=== PATIENT | male | born 1940 | race Hispanic/Latino ===

== ENCOUNTER 2024-07-23 08:43 | Inpatient (IN) | payer OTHER ==
[2024-07-23] VITALS (7 sets, daily range): BP systolic 112–131; BP diastolic 57–81; PULSE 57–71; RESP 16–18; TEMP 97.5–98.5; O2SAT 97–100
[~2024-07-23] VITALS: Ht 165.1 cm; Wt 72.6 kg
[2024-07-23] MEDS ORDERED: SODIUM CHLORIDE FLUSH 10 ML SYR IV PRN (09:15)
[2024-07-23 09:49] LABS: BASOPHILS % 0.3 % (0.0-1.0); EOSINOPHILS # (AUTO) 0.2 (0.0-0.4); EOSINOPHILS % 2.8 % (0.0-6.0); HEMATOCRIT 44.6 % (38.2-49.6); HEMOGLOBIN 14.4 g/dL (14.0-18.0); LYMPHOCYTES % 28.8 % (18.0-39.1); MEAN CORPUSCULAR HEMOGLOBIN 30.3 pg (28-32); MEAN CORPUSCULAR HGB CONC 32.3 g/dL (31-35); MEAN CORPUSCULAR VOLUME 93.9 fL (81-99); MONOCYTES # (AUTO) 0.7 (0.2-0.8); MONOCYTES % 9.6 % (4.4-11.3); NEUTROPHILS # (AUTO) 3.9 (2.1-6.9); NEUTROPHILS % 58.2 % (38.7-80.0); PLATELET COUNT 146 x10e3/uL (140-360); RED BLOOD COUNT 4.75 x10e6/uL (4.3-5.7); RED CELL DISTRIBUTION WIDTH 13.9 % (11.7-14.4); WHITE BLOOD COUNT 6.76 x10e3/uL (4.8-10.8)
[2024-07-23] MEDS: ASPIRIN 81 MG CHEW TAB PO ONE ×2 (10:02→13:27)
[2024-07-23 10:18] LABS: ALBUMIN/GLOBULIN RATIO 1.1 (0.8-2.0); ANION GAP 16.7 mmol/L (8-16); BILIRUBIN,TOTAL 1.1 mg/dL (0.2-1.2); CALCIUM 9.1 mg/dL (8.4-10.2); CREATININE, SERUM 0.79 mg/dL (0.72-1.25); POTASSIUM 3.7 mmol/L (3.5-5.1); TOTAL PROTEIN 7.5 g/dL (6.5-8.1)
[2024-07-23 10:23] LABS: TROPONIN I 0.031 ng/mL (0-0.300)
[2024-07-23] MEDS ORDERED: SODIUM CHLORIDE FLUSH 10 ML SYR INJ PRN (11:00)
[2024-07-23] MEDS ORDERED: ONDANSETRON HCL INJ 2MG/ML 2ML 2 MG/ML VIAL IV PRN (11:00)
[2024-07-23] MEDS ORDERED: PROPOFOL IV EMULSION 10 MG/ML 20 ML VIAL ONE (12:50)
[2024-07-23] MEDS ORDERED: LIDOCAINE HCL 2% LOCAL INJ 5 ML SDV VIAL INJ ONE (12:50)
[2024-07-23] MEDS: FUROSEMIDE INJ 10 MG/ML 4 ML VIAL IV SCH (15:30)
[2024-07-23 16:31] LABS: TROPONIN I 0.032 ng/mL (0-0.300)
[2024-07-23] MEDS ORDERED: LEVOTHYROXINE25 MCG PO (16:46)
[2024-07-23] MEDS ORDERED: ISOSORBIDE MONO30 MG PO (16:46)
[2024-07-23] MEDS ORDERED: METFORMIN HCL500 MG PO (16:46)
[2024-07-23] MEDS ORDERED: LISINOPRIL20 MG PO (16:46)
[2024-07-23] MEDS ORDERED: ATORVASTATIN CA20 MG PO (16:46)
[2024-07-23] MEDS ORDERED: CLOPIDOGREL75 MG PO (16:46)
[2024-07-23] MEDS ORDERED: VITAMIN PO (16:46)
[2024-07-23] MEDS ORDERED: METOPROLOL SUCC25 MG PO (16:46)
[2024-07-23] MEDS ORDERED: RANOLAZINE ER1000 MG PO (16:46)
[2024-07-24] VITALS (8 sets, daily range): BP systolic 110–128; BP diastolic 68–81; PULSE 65–79; RESP 16–20; TEMP 97.7–98.6; O2SAT 98–100
[2024-07-24 05:40] LABS: BASOPHILS % 0.6 % (0.0-1.0); EOSINOPHILS # (AUTO) 0.3 (0.0-0.4); EOSINOPHILS % 4.3 % (0.0-6.0); HEMATOCRIT 43.6 % (38.2-49.6); HEMOGLOBIN 13.9 g/dL (14.0-18.0); LYMPHOCYTES # (AUTO) 1.6 (1.0-3.2); LYMPHOCYTES % 24.8 % (18.0-39.1); MEAN CORPUSCULAR HEMOGLOBIN 30.2 pg (28-32); MEAN CORPUSCULAR HGB CONC 31.9 g/dL (31-35); MEAN CORPUSCULAR VOLUME 94.8 fL (81-99); MONOCYTES # (AUTO) 0.8 (0.2-0.8); MONOCYTES % 12.8 % (4.4-11.3); NEUTROPHILS # (AUTO) 3.6 (2.1-6.9); NEUTROPHILS % 57.2 % (38.7-80.0); PLATELET COUNT 138 x10e3/uL (140-360); RED CELL DISTRIBUTION WIDTH 13.8 % (11.7-14.4); WHITE BLOOD COUNT 6.24 x10e3/uL (4.8-10.8)
[2024-07-24 07:19] LABS: TROPONIN I 0.029 ng/mL (0-0.300)
[2024-07-24 08:03] LABS: ALBUMIN 3.6 g/dL (3.5-5.0); ALBUMIN/GLOBULIN RATIO 1.1 (0.8-2.0); BILIRUBIN,TOTAL 0.9 mg/dL (0.2-1.2); CREATININE, SERUM 0.74 mg/dL (0.72-1.25); TOTAL PROTEIN 6.8 g/dL (6.5-8.1)
[2024-07-24] MEDS: ISOSORBIDE MONONITRATE 30 MG TAB CR PO SCH (10:31)
[2024-07-24] MEDS: POTASSIUM CHLORIDE 10MEQ EA PO SCH (10:31)
[2024-07-24 14:26] LABS: ANION GAP 15.9 mmol/L (8-16)
[2024-07-24 15:59] LABS: POTASSIUM 3.9 mmol/L (3.0-5.1)
[2024-07-24] MEDS: ENOXAPARIN SOD INJ 40 MG/0.4 ML SYR SC SCH (16:46)
[2024-07-24] MEDS: LISINOPRIL 2.5 MG TAB PO SCH (16:46)
[2024-07-24] MEDS: METOPROLOL SUCCINATE 25 MG TAB XL PO SCH (21:00)
[2024-07-24] MEDS: ATORVASTATIN 40 MG TAB PO SCH (22:43)
[2024-07-24] MEDS: CLOPIDOGREL BISULFATE 75 MG TAB PO SCH (22:43)
[2024-07-25] VITALS (8 sets, daily range): BP systolic 109–120; BP diastolic 59–73; PULSE 62–81; RESP 16–19; TEMP 97.3–98; O2SAT 98–100
[2024-07-25 05:40] LABS: BASOPHILS % 0.6 % (0.0-1.0); EOSINOPHILS # (AUTO) 0.3 (0.0-0.4); EOSINOPHILS % 3.7 % (0.0-6.0); HEMATOCRIT 43.5 % (38.2-49.6); HEMOGLOBIN 13.7 g/dL (14.0-18.0); LYMPHOCYTES % 28.8 % (18.0-39.1); MEAN CORPUSCULAR HGB CONC 31.5 g/dL (31-35); MEAN CORPUSCULAR VOLUME 95.4 fL (81-99); MONOCYTES # (AUTO) 0.8 (0.2-0.8); MONOCYTES % 11.9 % (4.4-11.3); NEUTROPHILS # (AUTO) 3.7 (2.1-6.9); NEUTROPHILS % 54.6 % (38.7-80.0); PLATELET COUNT 141 x10e3/uL (140-360); RED BLOOD COUNT 4.56 x10e6/uL (4.3-5.7); RED CELL DISTRIBUTION WIDTH 13.8 % (11.7-14.4); WHITE BLOOD COUNT 6.83 x10e3/uL (4.8-10.8)
[2024-07-25] MEDS: LEVOTHYROXINE SODIUM 25 MCG TABLET PO SCH (05:58)
[2024-07-25 06:02] LABS: CREATININE, SERUM 0.82 mg/dL (0.72-1.25)
[2024-07-25 06:33] LABS: TROPONIN I 0.101 ng/mL (0-0.300)
[2024-07-25] MEDS: RANOLAZINE 500 MG TABSR PO SCH (09:01)
[2024-07-25] MEDS: ASPIRIN 81 MG ENTERIC COATED PO SCH (09:02)
[2024-07-25] MEDS: POTASSIUM CHLORIDE 10MEQ EA PO ONE (11:08)
[2024-07-25] MEDS ORDERED: ONDANSETRON HCL 4 MG ORAL DISINTEGRATING TAB PO PRN (15:00)
[2024-07-25] MEDS: POTASSIUM CHLORIDE 10MEQ EA PO SCH (17:12)
[2024-07-26] VITALS (8 sets, daily range): BP systolic 108–122; BP diastolic 52–74; PULSE 55–74; RESP 16–18; TEMP 97.5–98.1; O2SAT 95–100
[2024-07-26 07:06] LABS: CALCIUM 9.3 mg/dL (8.4-10.2); CREATININE, SERUM 0.98 mg/dL (0.72-1.25)
[2024-07-26 07:21] LABS: ANION GAP 15.7 mmol/L (8-16); POTASSIUM 3.7 mmol/L (3.5-5.1)
[2024-07-27] VITALS (8 sets, daily range): BP systolic 101–127; BP diastolic 49–88; PULSE 49–69; RESP 16–18; TEMP 97.5–98.2; O2SAT 94–100
[2024-07-27] MEDS ORDERED: IOPAMIDOL 370 MG/ML 100 ML INFUS..BTL INJ ONE ×2 (10:25→11:01)
[2024-07-28] VITALS (7 sets, daily range): BP systolic 101–115; BP diastolic 61–73; PULSE 52–71; RESP 16–18; TEMP 97.5–98.2; O2SAT 100
[2024-07-28 07:14] LABS: BASOPHILS # (AUTO) 0.1 (0.0-0.1); BASOPHILS % 0.8 % (0.0-1.0); EOSINOPHILS # (AUTO) 0.4 (0.0-0.4); EOSINOPHILS % 4.7 % (0.0-6.0); HEMATOCRIT 45.2 % (38.2-49.6); HEMOGLOBIN 14.6 g/dL (14.0-18.0); LYMPHOCYTES # (AUTO) 2.6 (1.0-3.2); MEAN CORPUSCULAR HGB CONC 32.3 g/dL (31-35); MONOCYTES # (AUTO) 0.7 (0.2-0.8); MONOCYTES % 9.3 % (4.4-11.3); NEUTROPHILS # (AUTO) 3.7 (2.1-6.9); NEUTROPHILS % 49.9 % (38.7-80.0); PLATELET COUNT 179 x10e3/uL (140-360); RED BLOOD COUNT 4.86 x10e6/uL (4.3-5.7); RED CELL DISTRIBUTION WIDTH 13.7 % (11.7-14.4); WHITE BLOOD COUNT 7.43 x10e3/uL (4.8-10.8)
[2024-07-28 07:29] LABS: ANION GAP 15.4 mmol/L (8-16); CALCIUM 9.8 mg/dL (8.4-10.2); CREATININE, SERUM 1.23 mg/dL (0.72-1.25)
[2024-07-28 07:32] LABS: POTASSIUM 5.4 mmol/L (3.5-5.1)
[2024-07-28 07:44] LABS: INR 1.01; PROTHROMBIN TIME 13.8 seconds (11.9-14.5)
[2024-07-29] VITALS (9 sets, daily range): BP systolic 105–129; BP diastolic 60–74; PULSE 57–66; RESP 16–20; TEMP 97.5–98; O2SAT 96–100
[2024-07-29 07:15] LABS: ALBUMIN 3.8 g/dL (3.5-5.0); BILIRUBIN,TOTAL 0.5 mg/dL (0.2-1.2); CREATININE, SERUM 1.26 mg/dL (0.72-1.25); TOTAL PROTEIN 7.6 g/dL (6.5-8.1)
[2024-07-29 08:55] LABS: CALCIUM 10.1 mg/dL (8.4-10.2); POTASSIUM 4.7 mmol/L (3.5-5.1)
[2024-07-29 10:24] LABS: ANION GAP 16.7 mmol/L (8-16)
[2024-07-29] MEDS: MIDAZOLAM HCL 2 MG/2 ML VIAL ONE (17:50)
[2024-07-29] MEDS: FENTANYL CITRATE/PF 100MCG/2 ML INJ ONE (17:53)
[2024-07-29] MEDS: SODIUM CHLORIDE 0.9% 1000ML 1,000 ML ONE (17:53)
[2024-07-29] MEDS: NITROGLYCERIN/D5W 200 MCG/ML 250 ML ONE (17:53)
[2024-07-29] MEDS: LIDOCAINE HCL 2% LOCAL 20 ML VIAL ONE (17:54)
[2024-07-29] MEDS: VERAPAMIL HCL 2.5 MG/ML 2 ML VIAL ONE (17:54)
[2024-07-29] MEDS: HEPARIN SOD/SOD CHLORIDE 2,000 ML ONE (17:54)
[2024-07-29] MEDS: IOPAMIDOL 370 MG/ML 100 ML INFUS..BTL INJ ONE (17:54)
[2024-07-29] MEDS: HEPARIN SOD (PORCINE) 1000 UNIT/ML 30ML ONE (17:54)
[2024-07-30] VITALS (9 sets, daily range): BP systolic 101–126; BP diastolic 57–81; PULSE 57–102; RESP 15–18; TEMP 97.5–98; O2SAT 93–100
[2024-07-30] MEDS: FUROSEMIDE INJ 10 MG/ML 4 ML VIAL IV SCH (08:46)
[2024-07-31 04:00] VITALS: BP 103/55; PULSE 68; RESP 20; TEMP 97.8; O2SAT 98
[2024-07-31 08:21] VITALS: BP 106/66; PULSE 65; RESP 16; TEMP 97.6; O2SAT 100
[2024-07-31 09:01] VITALS: BP 106/66; PULSE 65; RESP 16; TEMP 97.6; O2SAT 100
[2024-07-31 11:44] VITALS: BP 92/60; PULSE 66; RESP 16; TEMP 97.6; O2SAT 100
[2024-07-31 15:53] VITALS: BP 93/60; PULSE 62; RESP 18; TEMP 97.5; O2SAT 100
[2024-07-31 20:00] VITALS: BP 114/78; PULSE 64; RESP 18; TEMP 98; O2SAT 99
[2024-08-01] VITALS (7 sets, daily range): BP systolic 95–137; BP diastolic 56–98; PULSE 55–90; RESP 16–18; TEMP 97.5–98.7; O2SAT 98–99
[2024-08-01 06:38] LABS: ANION GAP 14.9 mmol/L (8-16); CALCIUM 9.4 mg/dL (8.4-10.2); CREATININE, SERUM 1.47 mg/dL (0.72-1.25); POTASSIUM 4.9 mmol/L (3.5-5.1)
[2024-08-01 07:00] LABS: MAGNESIUM 2.6 MG/DL (1.3-2.1); PHOSPHORUS 4.3 MG/DL (2.3-4.7)
[2024-08-01] MEDS: SODIUM CHLORIDE 0.9% 1000ML 1,000 ML IV ONE (11:24)
[2024-08-02] VITALS (9 sets, daily range): BP systolic 106–138; BP diastolic 63–75; PULSE 55–66; RESP 16–18; TEMP 97.5–98.2; O2SAT 96–100
[2024-08-02 06:20] LABS: BASOPHILS % 0.5 % (0.0-1.0); EOSINOPHILS # (AUTO) 0.2 (0.0-0.4); EOSINOPHILS % 3.7 % (0.0-6.0); HEMATOCRIT 43.4 % (38.2-49.6); LYMPHOCYTES # (AUTO) 2.3 (1.0-3.2); LYMPHOCYTES % 36.3 % (18.0-39.1); MEAN CORPUSCULAR HEMOGLOBIN 30.3 pg (28-32); MEAN CORPUSCULAR HGB CONC 32.3 g/dL (31-35); MEAN CORPUSCULAR VOLUME 93.9 fL (81-99); MONOCYTES # (AUTO) 0.7 (0.2-0.8); MONOCYTES % 10.3 % (4.4-11.3); NEUTROPHILS # (AUTO) 3.1 (2.1-6.9); NEUTROPHILS % 48.9 % (38.7-80.0); PLATELET COUNT 150 x10e3/uL (140-360); RED BLOOD COUNT 4.62 x10e6/uL (4.3-5.7); RED CELL DISTRIBUTION WIDTH 12.9 % (11.7-14.4); WHITE BLOOD COUNT 6.41 x10e3/uL (4.8-10.8)
[2024-08-02 06:41] LABS: CALCIUM 8.7 mg/dL (8.4-10.2); CREATININE, SERUM 1.25 mg/dL (0.72-1.25)
[2024-08-03] VITALS (12 sets, daily range): BP systolic 92–152; BP diastolic 58–74; PULSE 53–75; RESP 17–18; TEMP 97.5–98.6; O2SAT 98–100
[2024-08-03 05:52] LABS: BASOPHILS # (AUTO) 0.1 (0.0-0.1); BASOPHILS % 0.7 % (0.0-1.0); EOSINOPHILS # (AUTO) 0.2 (0.0-0.4); EOSINOPHILS % 3.2 % (0.0-6.0); HEMATOCRIT 44.5 % (38.2-49.6); HEMOGLOBIN 14.2 g/dL (14.0-18.0); LYMPHOCYTES # (AUTO) 2.2 (1.0-3.2); LYMPHOCYTES % 32.3 % (18.0-39.1); MEAN CORPUSCULAR HEMOGLOBIN 30.4 pg (28-32); MEAN CORPUSCULAR HGB CONC 31.9 g/dL (31-35); MEAN CORPUSCULAR VOLUME 95.3 fL (81-99); MONOCYTES # (AUTO) 0.7 (0.2-0.8); NEUTROPHILS # (AUTO) 3.6 (2.1-6.9); NEUTROPHILS % 53.5 % (38.7-80.0); PLATELET COUNT 158 x10e3/uL (140-360); RED BLOOD COUNT 4.67 x10e6/uL (4.3-5.7); WHITE BLOOD COUNT 6.78 x10e3/uL (4.8-10.8)
[2024-08-03 06:23] LABS: ANION GAP 14.2 mmol/L (8-16); CALCIUM 8.7 mg/dL (8.4-10.2); CREATININE, SERUM 0.98 mg/dL (0.72-1.25)
[2024-08-03 06:24] LABS: POTASSIUM 5.2 mmol/L (3.5-5.1)
[2024-08-03] MEDS: PANTOPRAZOLE SOD 40 MG TABEC PO SCH (09:33)
[2024-08-03 12:55] LABS: INR 1.13; PROTHROMBIN TIME 15.1 seconds (11.9-14.5)
[2024-08-03] MEDS ORDERED: MIDAZOLAM HCL 2 MG/2 ML VIAL ONE (14:52)
[2024-08-03] MEDS ORDERED: FENTANYL CITRATE/PF 100MCG/2 ML INJ ONE (14:52)
[2024-08-03] MEDS ORDERED: SODIUM CHLORIDE 0.9% 250ML 250 ML ONE (14:52)
[2024-08-03] MEDS ORDERED: SODIUM CHLORIDE 0.9% 250ML IRRIG IR SCH (20:00)
[2024-08-04] VITALS (8 sets, daily range): BP systolic 120–157; BP diastolic 63–83; PULSE 59–72; RESP 16–18; TEMP 97.1–98.4; O2SAT 98–100
[2024-08-04 06:42] LABS: ANION GAP 11.6 mmol/L (8-16); CALCIUM 8.8 mg/dL (8.4-10.2); CREATININE, SERUM 0.87 mg/dL (0.72-1.25); POTASSIUM 4.6 mmol/L (3.5-5.1)
[2024-08-05 00:56] VITALS: BP 121/66; PULSE 58; RESP 17; TEMP 98; O2SAT 99
[2024-08-05 04:00] VITALS: BP 121/66; PULSE 57; RESP 16; TEMP 98; O2SAT 97
[2024-08-05 07:57] VITALS: BP 122/70; PULSE 66; RESP 17; TEMP 98.6; O2SAT 98
[2024-08-05 08:54] VITALS: BP 122/70; PULSE 66; RESP 17; TEMP 98.6; O2SAT 98
[2024-08-05 09:40] VITALS: BP 122/70; PULSE 66; RESP 17; TEMP 98.6; O2SAT 98
[2024-08-05 11:29] VITALS: BP 123/60; PULSE 61; RESP 17; TEMP 98.8; O2SAT 100
== END 2024-08-05 12:00 | disposition home or self-care (01) | DRG 286 ==
LOC: ER 08:53 → ERHOLD 10:57 → IMCU 16:31 → MED/SURG2 17:00 → OBSVTOIN 07-24 09:15
PROVIDERS: ADMIT Internal Medicine; ATTEND Internal Medicine
PROC: B2111ZZ Fluoroscopy of Multiple Coronary Arteries using Low Osmolar Contrast (ICD-10-PCS; 2024-07-29)
PROC: 4A023N7 Measurement of Cardiac Sampling and Pressure, Left Heart, Percutaneous Approach (ICD-10-PCS; 2024-07-29)
PROC: B2131ZZ Fluoroscopy of Multiple Coronary Artery Bypass Grafts using Low Osmolar Contrast (ICD-10-PCS; 2024-07-29)
PROC: 0DB38ZX Excision of Lower Esophagus, Via Natural or Artificial Opening Endoscopic, Diagnostic (ICD-10-PCS; 2024-08-02)
PROC: 0DB78ZX Excision of Stomach, Pylorus, Via Natural or Artificial Opening Endoscopic, Diagnostic (ICD-10-PCS; principal; 2024-08-02 15:04)
PROC: 0FB03ZX Excision of Liver, Percutaneous Approach, Diagnostic (ICD-10-PCS; 2024-08-03)
DX: I25.810 Atherosclerosis of coronary artery bypass graft(s) without angina pectoris (principal); I50.23 Acute on chronic systolic (congestive) heart failure; N17.9 Acute kidney failure, unspecified; J98.11 Atelectasis; I11.0 Hypertensive heart disease with heart failure; D69.6 Thrombocytopenia, unspecified; R16.0 Hepatomegaly, not elsewhere classified; I25.82 Chronic total occlusion of coronary artery; Z95.1 Presence of aortocoronary bypass graft; I25.10 Atherosclerotic heart disease of native coronary artery without angina pectoris; E78.5 Hyperlipidemia, unspecified; E11.9 Type 2 diabetes mellitus without complications; E03.9 Hypothyroidism, unspecified; K21.9 Gastro-esophageal reflux disease without esophagitis; E87.6 Hypokalemia; K29.70 Gastritis, unspecified, without bleeding; Z79.02 Long term (current) use of antithrombotics/antiplatelets; Z79.890 Hormone replacement therapy; Z79.84 Long term (current) use of oral hypoglycemic drugs
CPT/HCPCS: 36415; 43239; 47000; 71046; 71250; 74178; 74470; 76937; 76942; 80048; 80053; 82105; 82378; 82550; 82948; 83036; 83735; 83880; 84100; 84484; 85025; 85610; 88172; 88173; 88305; 88307; 88342; 93005; 93306; 93455; 94760; 94799; 99152; 99153; 99252; 99284; C1887; G0378; J1644; J1650; J1940; J2001; J2250; J7030; J7050; Q9967